=== PATIENT | female | born 1940 | race African-American/Black ===

== ENCOUNTER 2020-06-24 13:58 | Emergency (ER) | payer MEDICARE ==
[~2020-06-24] VITALS: Ht 157.5 cm; Wt 84.0 kg
[2020-06-24] MEDS ORDERED: IV NORMAL SALINE 1000ML BAG 1,000 ML IV ONE (14:08)
[2020-06-24] MEDS ORDERED: ONDANSETRON PF 4 MG/2 ML VIAL. IVP ONE (14:15)
[2020-06-24] MEDS ORDERED: MORPHINE SULFATE 10 MG/ML VIAL. IV ONE (14:15)
--- NOTE | 2020-06-24 16:18 | RAD ---
Exam: CT abdomen/pelvis without contrast Indication: Naval drainage Comparison: None Technique: Helical CT imaging performed of the abdomen and pelvis without intravenous contrast. Sagittal and coronal reformats were obtained. One or more of the following individualized dose reduction techniques were utilized for this examination: 1. Automated exposure control 2. Adjustment of the mA and/or kV according to patient size 3. Use of iterative reconstruction technique. Findings: Lower chest: 4 mm nodule in the right middle lobe (image 6, series 4). The heart is normal in size. Liver: Normal. Gallbladder/Biliary Tree: Cholecystectomy. Bile ducts are normal. Pancreas: Normal. Spleen: Normal. Adrenal Glands: Normal. Kidneys/Ureters/Bladder: Kidneys are normal. No hydronephrosis or nephrolithiasis. Ureters are nondistended. There is mild bladder wall thickening. Reproductive Organs: Uterus is surgically absent. No adnexal mass. Stomach, small bowel, and colon: Stomach, small bowel, and colon are normal. Vasculature: Abdominal aorta is normal in caliber. There is mild calcified aortic atherosclerosis. Lymph Nodes: No lymphadenopathy. Peritoneum and retroperitoneum: No free fluid or free air. Bones: There is severe multilevel facet arthrosis with grade 1 degenerative listhesis at L2-L3, L3-L4, and L4-L5. Surgical changes of laminectomy at L5-S1. 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 Moderate osteoarthrosis of the hips. Miscellaneous: No abdominal wall hernia or fluid collection.. Probable mild left iliopsoas bursitis. Impression: 1. No acute abnormality. 2. Cholecystectomy. 3. 4 mm nodule in the right middle lobe. Dedicated CT chest could be obtained to further evaluate. Electronically signed by: Candy Quezada MD (06/24/2020 4:15 PM) [id number]
[2020-06-24] MEDS ORDERED: CLIN300C8 PO (16:26)
--- NOTE | 2020-06-24 16:28 | PHYS DOC ---
Past Medical History Past Medical History: No Pertinent History Past Surgical History: Hysterectomy Additional Past Surgical Histo: cataracts, gallstones, vericose thor removal Smoking Status: Never Smoker Alcohol Use: None Drug Use: None General Adult EDM: Chief Complaint: OTHER COMPLAINTS HPI: HPI: Patient is a 1-year-old female who presents to the emergency room with intermittent drainage from her bellybutton. She is never had anything like this previous. She states that she had some abdominal pain yesterday but no longer has it today. She denies any fever. She states that the drainage is typically white. Review of Systems: Review of Systems: General: Denies fever, chills, sweats, fatigue Eyes: Denies drainage, blurred vision, eye redness HENT: Denies rhinorrhea, sore throat, earache Respiratory: Denies cough, shortness of breath, wheezing Cardiac: Denies edema, palpitations, chest pain GI: Denies abdominal pain, Nausea, vomiting MSK: Denies back pain, neck pain Skin: Denies rash, jaundice Neuro: Denies headache, dizziness Psychiatric: Denies SI/HI Heart Score: Risk Factors: Risk Factors: DM, Current or recent (<one month) smoker, HTN, HLP, family history of CAD, obesity. Risk Scores: Score 0 - 3: 2.5% MACE over next 6 weeks - Discharge Home Score 4 - 6: 20.3% MACE over next 6 weeks - Admit for Clinical Observation Score 7 - 10: 72.7% MACE over next 6 weeks - Early Invasive Strategies Current Medications: Current Medications Medications (Trade) Dose Ordered Sig/[facility] Start Time Stop Time Status Last Admin Dose Admin Morphine Sulfate (Morphine Sulfate) 5 mg 1X ONCE 06/24/20 14:15 06/24/20 14:31 DC Ondansetron HCl (Zofran) 4 mg 1X ONCE 06/24/20 14:15 06/24/20 14:31 DC Sodium Chloride 1,000 ml @ 0 mls/hr Q0M ONCE 06/24/20 14:08 06/24/20 14:31 DC Allergies: Allergies: Allergies Coded Allergies Type Severity Reaction Last Updated Verified Iodinated Contrast Media Allergy Intermediate 06/24/20 Yes Penicillins Allergy Intermediate 06/24/20 Yes ibuprofen Allergy Intermediate 06/24/20 Yes Physical Exam: PE: General: Awake, alert, NAD. Well Nourished, well hydrated. Cooperative HEENT: Atraumatic, EOMI, PERRL, airway patent, moist oral mucosa Neck: Supple, trachea midline Respiratory: CTA bilaterally, normal effort, no wheezing/crackles CV: RRR, no murmur, cap refill <2 GI: Soft, nondistended, nontender, no masses MSK: No obvious deformities Skin: Warm, dry. Umbilicus: Small opening at the 3 o'clock position with white drainage Neuro: A&O x3, speech NL, sensory and motor grossly intact, no focal deficits Psych: Normal affect, normal mood, not suicidal or homicidal Current Patient Data: Vital Signs: Vital Signs Date Time Temp Pulse Resp B/P (MAP) Pulse Ox O2 Delivery O2 Flow Rate FiO2 06/24/20 14:10 98.5 74 16 174/85 (114) 98 Room Air 98.5 EKG: EKG: [] Radiology/Procedures: Radiology/Procedures: [] Course & Med Decision Making: Course & Med Decision Making Pertinent Labs and Imaging studies reviewed. (See chart for details) Patient is a 80-year-old female who presents to the emergency room complaining of drainage from her bellybutton. Is likely this is a small abscess underneath the bellybutton. CT was ordered to rule out any communication with the abdomen. CT does not show significant acute pathology. Patient will be placed on antibiotics. Patient's test results and vitals while in the ED were fully reviewed and discussed with the patient. Patient is stable and at this time does not need admission to the hospital. We have discussed strict return precautions and the importance of following up with their Primary Care Physician. Patient stated understanding and was given an opportunity to ask any questions. Patient is in agreement with plan. Dragon Disclaimer: Dragon Disclaimer: This electronic medical record was generated, in whole or in part, using a voice recognition dictation system. Departure Departure Impression: Primary Impression: Phlegmon Disposition: 01 HOME, SELF-CARE Condition: STABLE Referrals: LUIS JOYA MD (PCP) Patient Instructions: Abscess, [id number] Scripts Clindamycin Hcl (CLINDAMYCIN HCL) 300 Mg Capsule 1 CAP PO TID, #21 CAP Prov: BARBARA PANIAGUA MD 06/24/20 BARBARA PANIAGUA MD Jun 24, 2020 16:28
[2020-06-24 16:30] VITALS: BP 155/67
== END 2020-06-24 16:39 | disposition home or self-care (01) ==
LOC: ER 13:58
DX: L02.91 Cutaneous abscess, unspecified (principal); R10.9 Unspecified abdominal pain; Z90.710 Acquired absence of both cervix and uterus; Z98.890 Other specified postprocedural states; Z91.040 Latex allergy status; Z88.0 Allergy status to penicillin; Z88.6 Allergy status to analgesic agent
CPT/HCPCS: 74176; 99285